=== PATIENT | female | born 1950 | race Caucasian/White ===

== ENCOUNTER 2019-04-14 07:28 | Day surgery (SDC) | payer MEDICARE ==
[2019-04-14] MEDS ORDERED: Propofol 200 MG/20 ML SDV ONE (08:05)
[2019-04-14] MEDS ORDERED: fentaNYL 100 MCG/2 ML SDV ONE (08:06)
[2019-04-14] MEDS ORDERED: Midazolam 1 MG/ML 2 ML SDV ONE (08:06)
[2019-04-14] MEDS ORDERED: Sodium Chloride 0.9% 1,000 ML IV SCH (08:15)
[2019-04-14 10:41] VITALS: PULSE 63
[2019-04-14 10:44] VITALS: BP 144/80
--- NOTE | 2019-04-14 13:04 | OR ---
DATE OF PROCEDURE: 04/14/2019 SURGEON: Raman Villasenor MD PROCEDURE: Colonoscopy. FINDINGS: Descending colon polyp, approximately 5 mm, completely removed using snare. PREOPERATIVE DIAGNOSIS: Family history of colorectal cancer. POSTOPERATIVE DIAGNOSIS: Family history of colorectal cancer. RISKS: Risks, benefits, alternatives, and limitations including, but not limited to infection, bleeding, and perforation were explained. The patient wished to proceed. PROCEDURE IN DETAIL: The patient was placed in left lateral decubitus position. A digital rectal exam was performed without abnormality. The scope was introduced and advanced atraumatically to the ileocecal valve. The scope was brought back through the ascending, transverse, descending colon, and retroflexed. The aforementioned polyp was identified and completely removed. No evidence of old or new blood. The descending colon polyp was completely removed using snare. No abnormality on retroflex. Raman Villasenor MD /[id number]
== END 2019-04-14 11:00 | disposition home or self-care (01) ==
LOC: JP.SDS 07:28
PROVIDERS: ATTEND Surgery
DX: Z12.11 Encounter for screening for malignant neoplasm of colon (principal); K63.5 Polyp of colon; K21.9 Gastro-esophageal reflux disease without esophagitis; Z80.0 Family history of malignant neoplasm of digestive organs
CPT/HCPCS: 88305; J2250; J2704; J3010; J7030

== ENCOUNTER 2020-09-16 06:54 | Day surgery (SDC) | payer MEDICARE ==
[2020-09-16] MEDS ORDERED: fentaNYL 100 MCG/2 ML SDV ONE (07:30)
[2020-09-16] MEDS ORDERED: Sodium Chloride 0.9% 1,000 ML IV SCH (07:30)
[2020-09-16] MEDS ORDERED: Propofol 200 MG/20 ML SDV ONE (07:31)
[2020-09-16 10:32] VITALS: BP 134/94; PULSE 77
--- NOTE | 2020-09-16 13:49 | OR ---
DATE OF PROCEDURE: 09/16/2020 SURGEON: Raman Villasenor MD PROCEDURE: Esophagogastroduodenoscopy. FINDINGS: 1. Polypoid type lesions in gastric antrum (biopsied using cold biopsy forceps). 2. Very mild inflammation in the GE junction concerning for gastroesophageal reflux disease (biopsied in all 4 quadrants). COMPLICATIONS: None. STUCCO APPLICATOR: None. ANESTHESIA: MAC. RISKS: Risks, benefits, alternatives, and limitations including, but not limited to infection, bleeding, false positives, false negatives, along with perforation were all explained to the patient and she wished to proceed. PROCEDURE IN DETAIL: The patient was placed in left lateral decubitus position. The EGD scope was introduced and advanced atraumatically to the second part of the duodenum. No evidence of duodenitis or ulceration. No old or new blood. Within the stomach itself, the patient had several small benign-appearing polypoid lesions. Several of these were biopsied using cold biopsy forceps. No abnormalities on retroflexion. GE junction showed mild inflammation concerning for reflux disease. This was biopsied multiple times in all 4 quadrants. The air was removed from the stomach. The esophagus was normal. The patient tolerated the procedure well. Raman Villasenor MD /[id number]
== END 2020-09-16 10:34 | disposition home or self-care (01) ==
LOC: JP.SDS 06:54
PROVIDERS: ATTEND Surgery
DX: K29.00 Acute gastritis without bleeding (principal); K29.50 Unspecified chronic gastritis without bleeding; K21.00 Gastro-esophageal reflux disease with esophagitis, without bleeding; K31.7 Polyp of stomach and duodenum; Z80.0 Family history of malignant neoplasm of digestive organs; Z01.812 Encounter for preprocedural laboratory examination; Z20.822 Contact with and (suspected) exposure to COVID-19
CPT/HCPCS: 43239; J2704; J3010; J7030

== ENCOUNTER 2022-03-14 08:22 | Emergency (ER) | payer MEDICARE ==
[2022-03-14 10:16] VITALS: BP 181/88; PULSE 78
== END 2022-03-14 10:51 | disposition home or self-care (01) ==
LOC: JP.ED 08:22
DX: K29.50 Unspecified chronic gastritis without bleeding (principal); D70.8 Other neutropenia; I10 Essential (primary) hypertension; Z79.899 Other long term (current) drug therapy; Z90.49 Acquired absence of other specified parts of digestive tract
CPT/HCPCS: 93005; 99284

== ENCOUNTER → 2022-04-10 | Day surgery (SDC) | payer MEDICARE ==
[~2022-04-10] MED LIST: Propofol 200 MG/20 ML SDV ONE; fentaNYL 100 MCG/2 ML SDV ONE
== END ==
LOC: JP.SDS 06:00
PROVIDERS: ATTEND Surgery
DX: K21.9 Gastro-esophageal reflux disease without esophagitis (principal); K29.60 Other gastritis without bleeding; K44.9 Diaphragmatic hernia without obstruction or gangrene; I10 Essential (primary) hypertension; E66.9 Obesity, unspecified; Z79.899 Other long term (current) drug therapy
CPT/HCPCS: 43239; J2704; J3010

== ENCOUNTER 2022-04-21 08:15 | Day surgery (SDC) | payer MEDICARE ==
[2022-04-21] MEDS ORDERED: Lidocaine 1% with EPINEPHrine 1:100,000 50 ML MDV ONE (09:00)
[2022-04-21] MEDS ORDERED: Bupivacaine 0.5% 50 ML MDV ONE (09:00)
[2022-04-21] MEDS ORDERED: HYDROmorphone 1 MG/ML Syringe IV PRN (17:00)
[2022-04-21] MEDS ORDERED: Dextrose 5%-Lactated Ringers 1,000 ML IV SCH (17:00)
[2022-04-21] MEDS ORDERED: Metoclopramide 10 MG/2 ML SDV IVPUSH PRN (17:00)
[2022-04-21] MEDS ORDERED: Ondansetron 4 MG/2 ML SDV IVPUSH PRN (17:00)
[2022-04-21] MEDS ORDERED: HYDROmorphone 0.5 MG/0.5 ML Syringe IVPUSH PRN (17:00)
[2022-04-21] MEDS ORDERED: hydrOXYzine HCL 100 MG/2 ML SDV IM PRN (17:00)
[2022-04-21] MEDS: Acetaminophen 325 MG Tab PO SCH ×2 (22:12→23:25)
[2022-04-21] MEDS: ceFAZolin 1 GM in Premix Bag 1 BAG IV SCH (22:12)
[2022-04-22] MEDS: Acetaminophen 325 MG Tab PO SCH (06:33)
[2022-04-22] MEDS ORDERED: Ondansetron 4 MG Tab.DIS PO PRN (07:03)
[2022-04-22] MEDS ORDERED: hydrOXYzine HCl 25 MG Tab PO PRN (07:08)
[2022-04-22] MEDS: ceFAZolin 1 GM in Premix Bag 1 BAG IV SCH (07:49)
[2022-04-22 07:53] VITALS: PULSE 88
[2022-04-22] MEDS ORDERED: Losartan 50 MG Tab PO SCH (09:00)
[2022-04-22 09:46] VITALS: BP 146/68
[2022-04-22] MEDS ORDERED: Pantoprazole 40 MG Vial IV SCH (14:00)
== END 2022-04-22 12:15 | disposition home or self-care (01) ==
LOC: JP.SDS 08:15 → JP.MS 10:20 → JP.SDS 04-22 12:15
PROVIDERS: ATTEND Surgery
DX: K21.9 Gastro-esophageal reflux disease without esophagitis (principal); K44.9 Diaphragmatic hernia without obstruction or gangrene; D15.2 Benign neoplasm of mediastinum; I10 Essential (primary) hypertension; I25.2 Old myocardial infarction; Z79.899 Other long term (current) drug therapy
CPT/HCPCS: 39220; 43282; 49203; A9270; J0690; J3410; J7121; C1713; C1781; J3490

== ENCOUNTER 2024-02-12 09:05 | Emergency (ER) | payer MEDICARE ==
[2024-02-12 09:15] VITALS: BP 150/70; PULSE 86
== END 2024-02-12 12:23 | disposition home or self-care (01) ==
LOC: JP.ED 09:05
DX: L03.116 Cellulitis of left lower limb (principal); I10 Essential (primary) hypertension; Z90.49 Acquired absence of other specified parts of digestive tract; Z79.899 Other long term (current) drug therapy
CPT/HCPCS: 93971-LT; 99283